=== PATIENT | female | born 1990 | race Caucasian/White ===

== ENCOUNTER 2018-03-08 14:29 | Emergency (ER) | payer MEDICAID ==
[~2018-03-08] VITALS: Ht 172.7 cm; Wt 86.2 kg
[2018-03-08 14:40] VITALS: BP 129/87; Ht 172.7 cm; Wt 86.2 kg
== END 2018-03-08 15:40 | disposition home or self-care (01) ==
LOC: ED 14:29
DX: K02.9 Dental caries, unspecified (principal)